=== PATIENT | female | born 1980 ===

== ENCOUNTER 2022-01-04 05:03 | Inpatient (IN) | payer MEDICAID ==
[~2022-01-04] VITALS: Ht 160 cm; Wt 131.6 kg
[2022-01-04] MEDS ORDERED: acetaminophen 325mg tablet PO PRN (09:20)
[2022-01-04] MEDS ORDERED: NICOTINE POLACRILEX 2 MG LOZENGE BC PRN (09:20)
[2022-01-04] MEDS ORDERED: mag hydrox/Alum hydrox/simeth 30ml oral suspension PO PRN (09:20)
[2022-01-04] MEDS ORDERED: magnesium hydroxide 30ml (MOM) UD suspension PO PRN (09:20)
[2022-01-04 09:45] VITALS: BP 120/76
[2022-01-04] MEDS ORDERED: NO HOME MEDS (09:47)
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
[2022-01-04] MEDS: acetaminophen 325mg tablet PO PRN (11:17)
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
[2022-01-04 19:50] VITALS: BP 90/48
[2022-01-04] MEDS: traZODone 50mg tablet PO PRN (20:51)
[2022-01-04] MEDS: risperiDONE 2mg tablet PO SCH (20:51)
[2022-01-04 21:09] VITALS: BP 101/54
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
--- NOTE | 2022-01-05 06:54 | NUR ---
Patient in room MH 332. I have received report from noc charge and had the opportunity to ask questions and assume patient care.
--- NOTE | 2022-01-05 06:55 | NUR ---
Patient resting comfortably and getting blood drawn, introduced myself as her day nurse.
[2022-01-05 07:40] VITALS: BP 90/56
[2022-01-05 07:46] LABS: HEMOGLOBIN A1C 7.6 % (4.5-6.2)
[2022-01-05 07:47] LABS: CHOL/HDL RATIO 4.5 (0.00-4.99); CHOLESTEROL 175 MG/DL (0-200); HDL CHOLESTEROL 39 MG/DL (35-60); LDL CHOLESTEROL 70 MG/DL (50-100); TRIGLYCERIDES 289 MG/DL (20-135)
--- NOTE | 2022-01-05 08:50 | NUR ---
patient still resting in bed.
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
[2022-01-05 20:00] VITALS: BP 98/59
[2022-01-05] MEDS: traZODone 50mg tablet PO PRN (20:20)
[2022-01-05] MEDS: risperiDONE 2mg tablet PO SCH (20:20)
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
[2022-01-06 08:43] VITALS: BP 111/57
--- NOTE | 2022-01-06 14:16 | NUR ---
Initial: Pt admit for GD and psychosis. Currently on a regular diet and eating well with 75-100% PO intake. Noted pt with A1c 7.6% with no documented h/o DM. Notified RN to d/w physician regarding possible new dx and accuchecks. Given current mentation pt likely not appropriate for DM education. [facility] 01/05. Will continue to follow. Recommendations: 1) Continue regular diet; CHO controlled diet if pt with elevated BG levels 2) Bowel care PRN 3) Weekly scaled weights 4) Monitor appropriateness for DM education; A1c 7.6% with no documented h/o DM per EMR Addendum: 01/06/22 at [address] Amended: Links added.
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
[2022-01-06 20:00] VITALS: BP 97/58
[2022-01-06] MEDS: risperiDONE 2mg tablet PO SCH (20:28)
[2022-01-06] MEDS: traZODone 50mg tablet PO PRN (20:29)
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
[2022-01-07 08:00] VITALS: BP 100/56
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
[2022-01-07 19:26] VITALS: BP 152/85
[2022-01-07] MEDS: traZODone 50mg tablet PO PRN (20:38)
[2022-01-07] MEDS: risperiDONE 2mg tablet PO SCH (20:38)
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
[2022-01-08 08:00] VITALS: BP 93/71
--- NOTE | 2022-01-08 12:06 | NUR ---
CM Presenting Issues: Pt's 5250 Hearing is today, pt continues to exhibits disorganized thoughts & poverty of thoughts and has not been able to participate in dcp activities. Furthermore, pt's not been able to provide much info w/re to who her support people are and how to contact them. [facility]'s Financial Counselor made an attempt to determine if pt has Medicaid benefits in any states but this effort did not yield any info as pt unable to provide a SSN for herself. Interventions: Clinician met w/pt and again attempted to jog pt's memory about people & places where she may have any support sxs. Pt today asked for a bus ticket to [place] to go to her mother's home but can't tell me the address or a contact number for her mother. Yesterday it was [place] in [place], when clinician asked about this pt states, "[place] is in [place]." DCP is difficult w/pt as she's not able to provide much info about herself and her support system. Plan: Clinician will continue to engage pt in pre-dcp activities. Liz Goetz LCSW Addendum: 01/08/22 at 1215 by Liz Goetz SS Amended: Links added.
--- NOTE | 2022-01-08 13:45 | NUR ---
5250 [employer] TONY Devine
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
[2022-01-08 20:09] VITALS: BP 110/70
[2022-01-08] MEDS: traZODone 50mg tablet PO PRN (20:17)
[2022-01-08] MEDS: risperiDONE 2mg tablet PO SCH (20:17)
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
[2022-01-09 08:00] VITALS: BP 91/55
[2022-01-09] MEDS ORDERED: buPROPion 75mg tablet PO ONE (08:05)
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
[2022-01-09 19:34] VITALS: BP 91/53
[2022-01-09] MEDS: risperiDONE 2mg tablet PO SCH (20:38)
[2022-01-09] MEDS: traZODone 50mg tablet PO PRN (20:40)
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
[2022-01-10] MEDS: loperamide 2mg capsule PO PRN ×2 (05:23→20:01)
[2022-01-10 07:16] VITALS: BP 127/83
[2022-01-10] MEDS: buPROPion 75mg tablet PO SCH (08:36)
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
[2022-01-10 19:00] VITALS: BP 91/43
[2022-01-10] MEDS: traZODone 50mg tablet PO PRN (20:01)
[2022-01-10] MEDS: risperiDONE 2mg tablet PO SCH (20:02)
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
[2022-01-11] MEDS: buPROPion 75mg tablet PO SCH (07:33)
[2022-01-11 08:00] VITALS: BP 90/47
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
[2022-01-11] MEDS: metFORMIN 500mg tablet PO SCH (17:02)
[2022-01-11 20:00] VITALS: BP 103/62
[2022-01-11] MEDS: risperiDONE 2mg tablet PO SCH (20:43)
[2022-01-11] MEDS: traZODone 50mg tablet PO PRN (20:44)
[2022-01-11] MEDS: hydrOXYzine 25 MG tablet PO PRN (21:19)
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
[2022-01-12] MEDS: buPROPion 75mg tablet PO SCH (07:40)
[2022-01-12] MEDS: metFORMIN 500mg tablet PO SCH ×3 (07:40→17:00)
[2022-01-12] MEDS: aspirin 81mg, enteric-coated 1 TAB TABLET.DR PO SCH (07:40)
[2022-01-12 08:00] VITALS: BP 109/62
[2022-01-12] MEDS: hydrOXYzine 25 MG tablet PO PRN (12:01)
--- NOTE | 2022-01-12 14:16 | NUR ---
Reassessment: Pt continues to eat well, documented w/ 100% most meals currently meeting estimated nutrient needs. Pt is also participating in some snacks per electrical sign wirer. LB 01/11, bowel care available PNR per EMR. No nutrition intervention implemented at this time. Will continue to follow. Recommendations: 1) Continue regular diet; CHO controlled diet if pt with elevated BG levels 2) Bowel care PRN 3) Weekly scaled weights 4) Monitor appropriateness for DM education; A1c 7.6% with no documented h/o DM per EMR Addendum: 01/12/22 at [address] Amended: Links added. Addendum: 01/12/22 at [address] I have reviewed assessment by news intern
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
[2022-01-12] MEDS: traZODone 50mg tablet PO PRN (20:50)
[2022-01-12] MEDS: risperiDONE 2mg tablet PO SCH (20:50)
[2022-01-12 20:51] VITALS: BP 98/57
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
[2022-01-13 08:00] VITALS: BP 109/64
[2022-01-13] MEDS: buPROPion 75mg tablet PO SCH (08:16)
[2022-01-13] MEDS: metFORMIN 500mg tablet PO SCH ×3 (08:16→16:40)
[2022-01-13] MEDS: aspirin 81mg, enteric-coated 1 TAB TABLET.DR PO SCH (08:16)
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
[2022-01-13 19:36] VITALS: BP 99/58
[2022-01-13] MEDS: risperiDONE 2mg tablet PO SCH (20:31)
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
[2022-01-14] MEDS: metFORMIN 500mg tablet PO SCH ×3 (07:31→17:35)
[2022-01-14] MEDS: buPROPion 100mg tablet PO SCH (07:32)
[2022-01-14] MEDS: aspirin 81mg, enteric-coated 1 TAB TABLET.DR PO SCH (07:32)
[2022-01-14 08:00] VITALS: BP 98/56
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
[2022-01-14 19:56] VITALS: BP 110/58
[2022-01-14] MEDS: traZODone 50mg tablet PO PRN (20:34)
[2022-01-14] MEDS ORDERED: risperiDONE 2mg tablet PO SCH (21:00)
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
[2022-01-15 07:58] VITALS: BP 126/82
[2022-01-15] MEDS: aspirin 81mg, enteric-coated 1 TAB TABLET.DR PO SCH (08:20)
[2022-01-15] MEDS: metFORMIN 500mg tablet PO SCH ×3 (08:20→17:45)
[2022-01-15] MEDS: buPROPion 100mg tablet PO SCH (08:20)
[2022-01-15] MEDS: acetaminophen 325mg tablet PO PRN (08:21)
[2022-01-15] MEDS: hydrOXYzine 25 MG tablet PO PRN ×2 (08:38→18:09)
--- NOTE | 2022-01-15 11:17 | NUR ---
CM: Clinician called [facility] [phone] and provided referral for pt. A Soc 341 was faxed to ABDIEL Figueroa LCSW Addendum: 01/15/22 at 1120 by Liz Goetz SS Amended: Links added.
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
[2022-01-15 19:42] VITALS: BP 110/64
[2022-01-15] MEDS: risperiDONE 0.5mg tablet PO SCH (20:32)
[2022-01-15] MEDS: traZODone 50mg tablet PO PRN (20:32)
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
[2022-01-16 07:07] VITALS: BP 93/47
[2022-01-16] MEDS: buPROPion 100mg tablet PO SCH (08:34)
[2022-01-16] MEDS: acetaminophen 325mg tablet PO PRN (08:35)
[2022-01-16] MEDS: metFORMIN 500mg tablet PO SCH ×3 (08:35→17:56)
[2022-01-16] MEDS: hydrOXYzine 25 MG tablet PO PRN (08:35)
[2022-01-16] MEDS: aspirin 81mg, enteric-coated 1 TAB TABLET.DR PO SCH (08:35)
[2022-01-16 09:45] VITALS: BP 110/70
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
[2022-01-16 19:22] VITALS: BP 104/56
[2022-01-16] MEDS: traZODone 50mg tablet PO PRN (20:35)
[2022-01-16] MEDS: risperiDONE 0.5mg tablet PO SCH (20:36)
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
[2022-01-17 07:58] VITALS: BP 101/62
[2022-01-17] MEDS: aspirin 81mg, enteric-coated 1 TAB TABLET.DR PO SCH (09:01)
[2022-01-17] MEDS: metFORMIN 500mg tablet PO SCH ×3 (09:01→17:37)
[2022-01-17] MEDS: buPROPion 100mg tablet PO SCH (09:01)
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
[2022-01-17] MEDS: risperiDONE 0.5mg tablet PO SCH ×2 (21:00→22:00)
[2022-01-17] MEDS: traZODone 50mg tablet PO PRN (22:01)
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
[2022-01-18] MEDS: buPROPion 100mg tablet PO SCH ×2 (07:57→15:48)
[2022-01-18] MEDS: metFORMIN 500mg tablet PO SCH ×4 (07:57→16:21)
[2022-01-18] MEDS: aspirin 81mg, enteric-coated 1 TAB TABLET.DR PO SCH (07:57)
[2022-01-18 08:33] VITALS: BP 108/71
--- NOTE | 2022-01-18 12:38 | NUR ---
Reassessment: Pt continues to eat well, documented w/ 100% most meals currently meeting estimated nutrient needs. Pt is also participating in some snacks per mixer whipped topping. LBM 01/17, bowel care available PNR per EMR. No nutrition intervention implemented at this time. Will continue to follow. Recommendations: 1) Continue regular diet; CHO controlled diet if pt with elevated BG levels 2) Bowel care PRN 3) Weekly scaled weights 4) Monitor appropriateness for DM education; A1c 7.6% with no documented h/o DM per EMR Addendum: 01/18/22 at [address] Amended: Links added.
[2022-01-18] MEDS ORDERED: risperiDONE 2mg tablet PO ONE (15:35)
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
[2022-01-18] MEDS: risperiDONE 0.5mg tablet PO SCH (20:13)
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
[2022-01-19] MEDS: metFORMIN 500mg tablet PO SCH ×3 (07:00→17:25)
[2022-01-19 08:00] VITALS: BP 100/67
[2022-01-19] MEDS: buPROPion 100mg tablet PO SCH ×3 (08:00→20:00)
[2022-01-19] MEDS: aspirin 81mg, enteric-coated 1 TAB TABLET.DR PO SCH ×2 (08:00→08:20)
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
[2022-01-19] MEDS: hydrOXYzine 25 MG tablet PO PRN (17:25)
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
[2022-01-19] MEDS: risperiDONE 0.5mg tablet PO SCH (20:21)
[2022-01-20] MEDS: traZODone 50mg tablet PO PRN ×2 (02:27→20:26)
[2022-01-20] MEDS: hydrOXYzine 25 MG tablet PO PRN ×2 (02:27→20:26)
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
[2022-01-20] MEDS: metFORMIN 500mg tablet PO SCH ×3 (07:40→17:44)
[2022-01-20] MEDS: buPROPion 100mg tablet PO SCH ×2 (07:40→20:25)
[2022-01-20] MEDS: aspirin 81mg, enteric-coated 1 TAB TABLET.DR PO SCH (07:40)
[2022-01-20 07:48] VITALS: BP 141/87
--- NOTE | 2022-01-20 10:38 | NUR ---
CM Presenting Issues: Pt has been unable to provide much info re her support sx and info to support a safe d/c. Interventions: Clinician received t/c from Officer Blue of [facility], per t/c clinician was able to obtain SSN for pt and [facility] was able to identify pt's MediCal account via [facility]. Clinician notified [facility] office. Plan: Clinician will contact [facility] to coordinate dcp. Liz Goetz LCSW Addendum: 01/20/22 at 1150 by Liz Goetz SS Amended: Links added.
--- NOTE | 2022-01-20 13:00 | NUR ---
PT. IS MALODOROUS. RN ENCOURAGED PT. TO SHOWER, PT. BECAME UPSET, STATING, "I SHOWERED YESTERDAY!"
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
[2022-01-20 20:00] VITALS: BP 99/60
[2022-01-20] MEDS: risperiDONE 0.5mg tablet PO SCH (20:25)
[2022-01-20] MEDS: risperiDONE 2mg tablet PO PRN (23:58)
[2022-01-20] MEDS: acetaminophen 325mg tablet PO PRN (23:58)
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
[2022-01-21] MEDS: hydrOXYzine 25 MG tablet PO PRN ×2 (04:29→18:26)
[2022-01-21] MEDS: metFORMIN 500mg tablet PO SCH ×3 (07:00→17:00)
[2022-01-21 07:56] VITALS: BP 90/57
[2022-01-21] MEDS: aspirin 81mg, enteric-coated 1 TAB TABLET.DR PO SCH (08:32)
[2022-01-21] MEDS: buPROPion 100mg tablet PO SCH ×2 (08:32→20:01)
[2022-01-21] MEDS: risperiDONE 2mg tablet PO PRN (11:09)
--- NOTE | 2022-01-21 14:19 | NUR ---
CM Presenting Issues: Pt's now on 5269, pt's either is unable to/refusing to provide information about herself to facilitate dcp activities, pt's MediCal is from [facility]. Interventions: Clinician made 2 calls to [facility] CM division @ [phone]. On first call clinician was informed that pt has a CM assigned to her and CM will be notified to contact clinician re dcp activities. Second call to [facility] CM division, clinician was informed that clt is not connected to [facility] and therefore, does not have a CM. Plan: Clinician will staff case at [facility] tomorrow for additional support re dcp. Liz Goetz LCSW Addendum: 01/21/22 at 1425 by Liz Goetz SS Amended: Links added.
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
--- NOTE | 2022-01-21 18:17 | NUR ---
Patient refused her evening metformin. Pt. requested anxiety medication and received PRN Atarax.
[2022-01-21] MEDS: risperiDONE 0.5mg tablet PO SCH (20:04)
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
[2022-01-22 08:17] VITALS: BP 108/70
[2022-01-22] MEDS: aspirin 81mg, enteric-coated 1 TAB TABLET.DR PO SCH (08:46)
[2022-01-22] MEDS: buPROPion 100mg tablet PO SCH ×2 (08:46→20:39)
[2022-01-22] MEDS: metFORMIN 500mg tablet PO SCH ×3 (08:46→17:45)
[2022-01-22] MEDS: risperiDONE 2mg tablet PO PRN (10:31)
--- NOTE | 2022-01-22 13:08 | NUR ---
5270 [facility] TONY Devine
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
--- NOTE | 2022-01-22 16:44 | NUR ---
Pt. had another agitated episode after requesting a snack and being redirected by staff that she must wait until dinner. Pt. again began yelling aloud at staff members using multiple profanities, she remains fixed in her delusion that "Everyone is on TV!" This property underwriter again encouraged pt. to shower with the promise of a snack afterwards, however she continued to refuse and walked agitatedly away. Pt's linens were changed by this property underwriter r/t visible feces present.
[2022-01-22 20:00] VITALS: BP 113/63
[2022-01-22] MEDS: hydrOXYzine 25 MG tablet PO PRN (20:39)
[2022-01-22] MEDS: risperiDONE 0.5mg tablet PO SCH (20:39)
[2022-01-22] MEDS: traZODone 50mg tablet PO PRN (20:39)
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
[2022-01-23 08:00] VITALS: BP 110/60
[2022-01-23] MEDS: metFORMIN 500mg tablet PO SCH ×3 (10:28→17:35)
[2022-01-23] MEDS: buPROPion 100mg tablet PO SCH ×2 (10:28→20:02)
[2022-01-23] MEDS: aspirin 81mg, enteric-coated 1 TAB TABLET.DR PO SCH (10:28)
[2022-01-23] MEDS: hydrOXYzine 25 MG tablet PO PRN ×2 (10:29→17:56)
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
[2022-01-23 19:18] VITALS: BP 132/68
[2022-01-23] MEDS: traZODone 50mg tablet PO PRN (20:03)
[2022-01-23] MEDS: risperiDONE 0.5mg tablet PO SCH (20:03)
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
[2022-01-24 08:00] VITALS: BP 107/76
[2022-01-24] MEDS: aspirin 81mg, enteric-coated 1 TAB TABLET.DR PO SCH (08:12)
[2022-01-24] MEDS: hydrOXYzine 25 MG tablet PO PRN (08:12)
[2022-01-24] MEDS: metFORMIN 500mg tablet PO SCH ×3 (08:12→18:14)
[2022-01-24] MEDS: buPROPion 100mg tablet PO SCH ×2 (08:12→20:04)
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
[2022-01-24] MEDS: traZODone 50mg tablet PO PRN (20:04)
[2022-01-24] MEDS: risperiDONE 0.5mg tablet PO SCH (20:04)
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
--- NOTE | 2022-01-25 07:40 | NUR ---
Reassessment: Pt continues to eat well, documented w/ 100% most meals currently meeting estimated nutrient needs. Pt is also participating in some snacks per suction plate roller hand. LBM 01/24, bowel care available PNR per EMR. No nutrition intervention implemented at this time. Will continue to follow. Recommendations: 1) Continue regular diet; CHO controlled diet if pt with elevated BG levels 2) Bowel care PRN 3) Weekly scaled weights 4) Monitor appropriateness for DM education; A1c 7.6% with no documented h/o DM per EMR Addendum: 01/25/22 at [address] Amended: Links added.
[2022-01-25 08:00] VITALS: BP 130/70
[2022-01-25] MEDS: aspirin 81mg, enteric-coated 1 TAB TABLET.DR PO SCH (08:21)
[2022-01-25] MEDS: buPROPion 100mg tablet PO SCH ×2 (08:22→20:29)
[2022-01-25] MEDS: metFORMIN 500mg tablet PO SCH ×3 (08:22→17:56)
[2022-01-25] MEDS: hydrOXYzine 25 MG tablet PO PRN ×2 (08:22→18:03)
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
[2022-01-25 19:40] VITALS: BP 98/57
[2022-01-25] MEDS: risperiDONE 0.5mg tablet PO SCH (20:29)
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
[2022-01-26 08:02] VITALS: BP 130/60
[2022-01-26] MEDS: metFORMIN 500mg tablet PO SCH ×3 (08:08→16:11)
[2022-01-26] MEDS: buPROPion 100mg tablet PO SCH ×2 (08:08→21:07)
[2022-01-26] MEDS: aspirin 81mg, enteric-coated 1 TAB TABLET.DR PO SCH (08:08)
--- NOTE | 2022-01-26 11:19 | NUR ---
Patient irritable, withdrawn and wants to sleep. Patient refused to have full physical assessment completed and pulled blankets over head and stated, "no, I don't want you to assess me" and went back to sleep. Will continue to monitor.
[2022-01-26] MEDS ORDERED: RISP3TAB63 PO (13:31)
[2022-01-26] MEDS ORDERED: METF-437 PO (13:31)
[2022-01-26] MEDS ORDERED: NICO-907 BC (13:31)
[2022-01-26] MEDS ORDERED: BUPR-122 PO (13:31)
[2022-01-26] MEDS ORDERED: TRAZ-251 PO (13:31)
[2022-01-26] MEDS ORDERED: ASPI-1071 PO (13:31)
--- NOTE | 2022-01-26 13:49 | NUR ---
Patient refusing to have weekly weight. Patient first stated she wanted to use the bathroom prior to being weighed then when attempted to get patients weight she walked away and stated, " I don't want to tell you my weight."
[2022-01-26] MEDS: hydrOXYzine 25 MG tablet PO PRN (16:12)
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
[2022-01-26 20:21] VITALS: BP 98/55
[2022-01-26] MEDS: risperiDONE 0.5mg tablet PO SCH (21:07)
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
[2022-01-27] MEDS: aspirin 81mg, enteric-coated 1 TAB TABLET.DR PO SCH (07:58)
[2022-01-27] MEDS: buPROPion 100mg tablet PO SCH (07:58)
[2022-01-27] MEDS: metFORMIN 500mg tablet PO SCH (07:58)
[2022-01-27 08:00] VITALS: BP 100/63
--- NOTE | 2022-01-27 10:08 | NUR ---
DISCHARGE NOTE: Pt. discharged to social security office via taxi cab and then pt. to go to [facility]. Pt. discharged with all medications and belongings as well as bus passes. Pt. verbalized understanding of all discharge paper work and signed medication and f/u as well as emergency numbers including 911. Pt. is A&O to self and place. Pt. denies SI/HI, A/V hallucinations. Pt. in no apparent distress.
== END 2022-01-27 10:08 | disposition home or self-care (01) | DRG 750 ==
LOC: ADULT MH 10:35
PROVIDERS: ADMIT Psychiatry & Neurology Psychiatry; ATTEND Psychiatry & Neurology Psychiatry
DX: F25.1 Schizoaffective disorder, depressive type (principal); F29 Unspecified psychosis not due to a substance or known physiological condition; R45.851 Suicidal ideations; Z20.822 Contact with and (suspected) exposure to COVID-19; M54.9 Dorsalgia, unspecified; E11.9 Type 2 diabetes mellitus without complications; F17.210 Nicotine dependence, cigarettes, uncomplicated; E66.01 Morbid (severe) obesity due to excess calories; G47.00 Insomnia, unspecified; G89.29 Other chronic pain; Z59.00 Homelessness unspecified; Z68.43 Body mass index [BMI] 50.0-59.9, adult; Z71.6 Tobacco abuse counseling
CPT/HCPCS: 36415; 80061; 82948; 83036; 87081; 87635; Q0177